=== PATIENT | male | born 1960 | race Caucasian/White ===

== ENCOUNTER 2017-09-10 18:32 | Emergency (ER) | payer MEDICAID, OTHER ==
--- NOTE | 2017-09-10 19:14 | EDPHY ---
H & P Stated Complaint: nontraumatic l wrist pain/?hx arthritis old fx l wrist Time Seen by Provider: 09/10/17 19:13 HPI/ROS: HPI: This is a 57-year-old male who presents with Chief Complaint: nontraumatic l wrist pain/?hx arthritis old fx l wrist Location: Left wrist Quality: Pain Duration: Several weeks Signs and Symptoms: No bleeding, no radiation, no numbness, no weakness, no tingling, no incontinence, no decreased range of motion, no swelling, no pain, no fever Timing: Worsening Severity: 03/10 Context: Patient is right-hand dominant, tobacco user, presents with several week history of left wrist pain that he has attributed to arthritis but has worsened over the last several days and accompanied by swelling. Patient notes some numbness and tingling in all 5 of his left fingers. Denies any actual trauma. 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 Has not tried any [id number] pain medications. Has no primary care provider. Reports decreased range of motion secondary to pain and swelling. Denies redness/warmth. No history of gouty arthropathy. Modifying Factors: None Comment: ROS: see HPI Constitutional: No fever, no chills, no weight loss Eyes: No blurred vision Respiratory: No shortness of breath, no cough Cardiovascular: No chest pain Gastrointestinal: No nausea, no vomiting no diarrhea Genitourinary: No dysuria Extremities: No myalgias Neurologic: No weakness, no numbness Skin: No rashes Hematologic: No bruising, no bleeding MEDICAL/SURGICAL/SOCIAL HISTORY: Medical history: l wrist fx/?arthritis/back and knee pain Surgical history: Denies Social history: Tobacco user CONSTITUTIONAL: Adult white male, smells heavily of tobacco, awake and alert, no obvious distress HEENT: Atraumatic and normocephalic, PERRL, EOMI. Tympanic membranes clear. Oropharynx clear, no exudate and moist pink mucosa. Airway patent. No lymphadenopathy. No meningismus. Cardiovascular: Normal S1/S2, regular rate, regular rhythm, without murmur rub or gallop. PULMONARY/CHEST: Symmetrical and nontender. Clear to auscultation bilaterally. Good air movement. No accessory muscle usage. ABDOMEN: Soft, nondistended, nontender, no rebound, no guarding, no peritoneal signs, no masses or organomegaly. No CVAT. EXTREMITIES: 2/2 pulses, strength 5/5, left WRIST: Extension decreased to 30 degree, flexion decreased to 50, radial deviation to 20 degree, ulnar deviation to 30, no scaphoid tenderness, mild tenderness over ulnar styloid, mild tenderness over radial styloid, severe pain with Ros test, mild pain with Phalen test, mild pain with Tinel test. Left ELBOW: Full extension to 180, flexion to 150, no tenderness over medial epicondyle, no tenderness over lateral epicondyle, no effusion. no deformities, no clubbing, no cyanosis or edema. NEUROLOGICAL: no focal neuro deficits. GCS 15. SKIN: Warm and dry, no erythema. no rash. Good capillary refill. Source: Patient Exam Limitations: No limitations - Personal History Current Tetanus/Diphtheria Vaccine: No - Medical/Surgical History Hx Asthma: No Hx Chronic Respiratory Disease: No Hx Diabetes: No Hx Cardiac Disease: No Hx Renal Disease: No Hx Cirrhosis: No Hx Alcoholism: No Hx HIV/AIDS: No Hx Splenectomy or Spleen Trauma: No Other PMH: l wrist fx/?arthritis/back and knee pain - Social History Smoking Status: Current every day smoker Constitutional: Initial Vital Signs Temperature (C) 36.4 C 09/10/17 18:56 Heart Rate 61 09/10/17 18:56 Respiratory Rate 17 09/10/17 18:56 Blood Pressure 123/92 H 09/10/17 18:56 O2 Sat (%) 96 09/10/17 18:56 O2 Delivery Mode Room Air Allergies/Adverse Reactions: No Known Allergies Allergy (Unverified 09/10/17 18:56) Home Medications: Medication Instructions Recorded Dilaudid 09/10/17 Meloxicam [Mobic 15 mg] 15 mg PO DAILY #10 tablet 09/10/17 oxyCODONE/APAP 5/325 [Percocet 1 - 2 tab PO Q4H PRN #10 tab 09/10/17 5/325 (*)] Medical Decision Making - Diagnostics Imaging Results: Imaging Impressions Hand X-Ray 09/10/17 19:01 Impression: Negative for fracture. Four Views, Left Hand Clinical Indications: Pain and swelling; no report of recent specific trauma. Findings: A fracture or other acute osseous abnormality is not identified. The bone alignment is normal. Degenerative changes are noted, most pronounced involving the distal pole of the carpal navicula. Degenerative changes are also seen at the base of the 1st metacarpal and involving multiple interphalangeal joints. Calcifications are seen in the area of triangular fibrocartilage suggesting degenerative change. Impression: 1. Negative for fracture. 2. Degenerative changes are noted, as detailed above. Wrist X-Ray 09/10/17 19:01 Impression: Negative for fracture. Four Views, Left Hand Clinical Indications: Pain and swelling; no report of recent specific trauma. Findings: A fracture or other acute osseous abnormality is not identified. The bone alignment is normal. Degenerative changes are noted, most pronounced involving the distal pole of the carpal navicula. Degenerative changes are also seen at the base of the 1st metacarpal and involving multiple interphalangeal joints. Calcifications are seen in the area of triangular fibrocartilage suggesting degenerative change. Impression: 1. Negative for fracture. 2. Degenerative changes are noted, as detailed above. Procedures: Procedure: Splint placement. A left Velcro wrist splint was applied by the Emergency Room copy technician. After application of the splint I returned and re-examined the patient. The splint was adequately immobilizing the joint and distal to the splint the patient's circulation and sensation was intact. ED Course/Re-evaluation: Left wrist x-ray,left hand x-ray, oral medications ordered Placed in Velcro wrist splint Given Percocet x2 with adequate relief of pain No signs of neurovascular compromise/tenting of skin/compartment syndrome/ extremities and joints examined above and below area of concern and are neurovascularly intact/cellulitis/gouty arthropathy. Advised rice treatment, NSAIDs, pain control, wrist splint, Ortho follow-up This patient was seen under the supervision of my secondary supervising physician. I evaluated care for this patient independently. Differential Diagnosis: Differential diagnosis includes but is not limited to tendinitis, De Quervain's tenosynovitis, carpal tunnel syndrome, fracture, nerve injury, tendon injury, degenerative changes. Departure - Departure Disposition: Home, Routine, Self-Care Clinical Impression: Left wrist tendonitis, De Quervain's tenosynovitis, left Condition: Good Instructions: De Quervain Disease (ED), Tenosynovitis (ED), Tendinitis (ED), R.I.C.E. Treatment (ED) Additional Instructions: Wear the splint continuously except to shower until seen for follow-up by Orthopedics. Take Mobic daily with food for inflammatory pain. Use Percocet every 4-6 hours as needed for severe/break through pain. Do not use Tylenol and Percocet concomitantly. Apply ice for 30 minutes at a time; 2-3 times per day for the next 1-2 days. Limit use of your left wrist as much as possible until pain resolved. Follow RICE therapy. Follow up with Orthopedics in 7-10 days days at which time they will evaluate and recommend with you if conservative management versus MRI wrist is indicated. Referrals: Alfred Sterling MD [Medical Doctor] - As per Instructions Prescriptions: Meloxicam [Mobic 15 mg] 15 mg PO DAILY #10 tablet oxyCODONE/APAP 5/325 [Percocet 5/325 (*)] 1 - 2 tab PO Q4H PRN #10 tab PRN Reason: Pain, Severe
[2017-09-10] MEDS ORDERED: OXYCODONE/APAP 5/325 TAB PO ONE (19:46)
[2017-09-10 20:12] VITALS: BP 144/70
== END 2017-09-10 20:12 | disposition home or self-care (01) ==
DX: M65.4 Radial styloid tenosynovitis [de Quervain] (principal); M77.8 Other enthesopathies, not elsewhere classified; F17.200 Nicotine dependence, unspecified, uncomplicated
CPT/HCPCS: A4565; L3908